=== PATIENT | male | born 1945 | race Caucasian/White ===

== ENCOUNTER 2024-02-21 08:28 | Emergency (ER) | payer OTHER, MEDICARE ==
[2024-02-21] VITALS (10 sets, daily range): BP systolic 119–147; BP diastolic 68–79
[~2024-02-21] VITALS: Ht 177.8 cm; Wt 104.6 kg
[2024-02-21] MEDS ORDERED: IPRATROPIUM-Albuterol 0.5MG-2.5MG/3 ML NEB ONE ×2 (08:35)
[2024-02-21] MEDS ORDERED: methylPREDNISolone SODIUM SUCC 125 MG/2 ML SDV IV ONE (08:35)
[2024-02-21] MEDS ORDERED: cefTRIAXone SODIUM 2 GM in SODIUM CHLORIDE 0.9% 100 ML IV ONE (08:35)
[2024-02-21] MEDS ORDERED: AZITHROMYCIN 500 MG in SODIUM CHLORIDE 0.9% 250 ML IV ONE (08:35)
[2024-02-21 08:58] LABS: BASO% 0.2 % (0-3); EOS% 0.3 % (0-8); HEMATOCRIT 44.1 % (39.0-50.0); HEMOGLOBIN 15.2 g/dl (14.0-18.0); IMMATURE GRANULOCYTES 0.1 % (0.0-5.0); LYMPH% 36.5 % (15-41); MEAN CELL VOLUME 92.1 fL CALC (80.0-100.0); MEAN CORPUSCULAR HGB 31.7 pG CALC (26.0-32.0); MEAN CORPUSCULAR HGB CONC 34.5 g/dL CAL (32.0-36.0); MONO% 9.6 % (2-13); NEUT# 5.47 thou/uL (1.82-7.42); NEUT% 53.3 % (42-76); RED BLOOD COUNT 4.79 mill/uL (4.70-6.10)
[2024-02-21 09:11] LABS: ALBUMIN 4.4 g/dL (3.2-5.0); ALKALINE PHOSPHATASE 77 u/l (38-126); ANION GAP 13 (6-22 (CALC)); BILIRUBIN, TOTAL 1.1 mg/dL (0.2-1.3); BUN 18 mg/dL (8-23); BUN/CREATININE RATIO 12 (12-20 (CALC)); CARBON DIOXIDE 26 mmol/l (22-30); CHLORIDE 103 mmol/l (95-108); CREATININE 1.4 mg/dL (0.7-1.3); ESTIMATED GFR 51 ML/MIN (>=90 (CALC)); POTASSIUM 3.6 mmol/l (3.5-5.1); SGOT/AST 28 u/l (19-48); SODIUM 138 mmol/l (137-146); TOTAL PROTEIN 7.7 g/dL (6.3-8.2)
[2024-02-21] MEDS ORDERED: VENTOLIN HFA108 MCG PO (11:55)
[2024-02-21] MEDS ORDERED: AMOX/K CLAV875 M1 PO (11:55)
[2024-02-21] MEDS ORDERED: ZPAK PO (11:55)
[2024-02-21] MEDS ORDERED: DEXAMETHASON6 MG PO (11:55)
[2024-02-21] MEDS ORDERED: PAXLOVID PO (11:55)
== END 2024-02-21 12:39 | disposition home or self-care (01) | DRG 177 ==
LOC: ED 08:28 → EDBD 08:28 → ED 10:29
PROVIDERS: Family Medicine
DX: U07.1 COVID-19 (principal); J12.82 Pneumonia due to coronavirus disease 2019; I10 Essential (primary) hypertension; E11.9 Type 2 diabetes mellitus without complications
CPT/HCPCS: Q9967